=== PATIENT | female | born 1985 | race Caucasian/White ===

== ENCOUNTER → 2019-08-09 12:50 | Outpatient (POV) | payer BC, SELFPAY | DX: Z00.00 Encounter for general adult medical examination without abnormal findings (principal) ==

== ENCOUNTER → 2020-11-20 17:18 | Outpatient (CLI) | payer BC, SELFPAY ==
[2020-11-20 17:43] LABS: Basophils # 0.1 K/mm3 (0-0.2); Eosinophils # 0.3 K/mm3 (0.0-0.4); Eosinophils % 2.2 % (0.1-12.0); Hematocrit 40.3 % (37.0-47.0); Hemoglobin 13.4 g/dL (12.2-16.2); Lymphocytes # 4.2 K/mm3 (0.7-4.5); Lymphocytes % 36.2 % (10-50); Mean Corpuscular HGB Conc 33.4 g/dL (31.8-35.4); Mean Corpuscular Hemoglobin 34.5 pg (27.0-31.2); Mean Corpuscular Volume 103.5 fl (81-99); Mean Platelet Volume 7.4 fl (7.4-10.4); Monocytes # 0.8 K/mm3 (0.1-1.0); Monocytes % 6.6 % (1.7-9.3); Neutrophils # 6.2 K/mm3 (1.8-7.8); Neutrophils % 54.1 % (37.0-80.0); Platelet Count 331 K/mm3 (142-424); Red Cell Distribution Width 13.1 % (11.5-17.5); White Blood Count 11.5 K/mm3 (4.8-10.8)
[2020-11-20 17:59] LABS: Anion Gap 11.8 mEq/L (5-15); Blood Urea Nitrogen 17 mg/dl (7-17); Calcium 10.2 mg/dl (8.4-10.2); Carbon Dioxide 22 mmol/L (22.0-30.0); Chloride 100 mmol/L (98-107); Estimated Glomerular Filt Rate 94 ml/min (>60); GFR (African American) 114 ML/MIN (>60); Glucose 84 mg/dl (74-100); Potassium 3.8 mmoL/L (3.5-5.1); Sodium 130 mmol/L (136-145)
[2020-11-20 18:04] LABS: HCG Qualitative, Serum Negative (Negative)
[2020-11-20 18:15] LABS: Coronavirus 19 IgG Antibody Negative (Negative); Coronavirus 19 IgM Antibody Negative (Negative)
== END ==
PROVIDERS: Visit Provider Nurse Practitioner Obstetrics & Gynecology
DX: Z01.812 Encounter for preprocedural laboratory examination (principal); Z20.822 Contact with and (suspected) exposure to COVID-19; A63.0 Anogenital (venereal) warts
CPT/HCPCS: 36415; 80048; 84703; 85025; 86328

== ENCOUNTER 2020-11-22 06:02 | Day surgery (SDC) | payer BC, SELFPAY ==
[2020-11-19 11:47] VITALS: BMI 26.5
[2020-11-22] VITALS (10 sets, daily range): BP systolic 101–128; BP diastolic 59–81; PULSE 79–92; RESP 14–18; TEMP 36.1–43; O2SAT 94–99
--- NOTE | 2020-11-22 08:34 | HMH.OPNOTE ---
Date of procedure: 11/22/20 Pre-op Diagnosis:: Perineal and perianal condylomata Post-op Diagnosis:: perineal and perianal condyloma. Procedure performed:: Laser and shaving of perianal and perineal condylomata Surgeon:: Catracho Fregoso MD [employer]:: Other (Matthew Rosenberg) Anesthesia: LMA Estimated blood loss (mL): 10 Clinical Note:: She is a 35-year-old lady who complains of perianal and perineal condylomata. After having discussed the risk and benefits we elected to remove these with both laser and shaving. Operative findings:: She had multiple condylomata in the perineal and perianal area. There were at least 30 separate lesions. Operative note:: She was taken the operating room where LMA anesthesia was found be adequate. She was prepped draped normal sterile fashion in the lithotomy position. There were a number of small lesions that were pedunculated and using a small pair of Metzenbaum scissors and toothed pickups I was able to shave these off with the scissors. I applied a small amount of silver nitrate to stop any bleeding from the skin. Then using the CO2 laser on 5 superpulse I lasered the rest of the lesions on both sides of her perineum and perianal area. I applied some acetic acid and then further used the laser to smooth the skin on the perineal area. We then applied lidocaine 5% ointment to the entire area. A pad was applied. She tolerated seizure well and was taken to the recovery room in excellent condition. All sponge and instrument counts were correct. There were no needles. Estimated blood loss was less than 10 cc. Condition: stable Disposition: PACU Specimens:: Perineal warts Complications:: None
--- NOTE | 2020-11-22 11:54 | P.PN_ITS ---
[facility] Anesthesia Checklist - Patient Identification Patient Identification: Arm Band - Structural Data Admitted From: Home Planned Operative Procedure/s: Laser removal of condyloma Consent for Planned Operative Procedure(s) Verified: Yes Verified Documents: Surgical Consent, History and Physical - Additional verifications Anesthesia Reactions: No Hx Blood Transfusions: No Blood Transfusion Reaction: No - Airway Assessment C-Spine Mobility Assessed: Yes TMJ Mobility Assessed: Yes Dentition: Good Dentition - Neurological Assessment Level of Consciousness: Awake, Alert - Anesthesia Plan Anesthesia Risk discussed: Yes Anesthesia Plan: Verified ASA Class: II Anesthesia Type: General [facility] History Medical History: Reports:: Hypertension Denies:: Cancer, Diabetes Mellitus Type 1, Diabetes Mellitus Type 2, Internal Pacemaker, MRSA, Seizures *Have you ever received a pneumonia vaccine?: No *Have you received a flu vaccine this season?: No Other Medical History: Denies: Blood Transfusion Reaction Anesthesia experience/problems:: None Other Surgeries: No: Pacemaker Amputation: No Fractures: No - *Social History Last grade of school completed: High school graduate Smoking Status: Current every day smoker Tobacco Type: cigarettes # Packs/Day (cigarettes): 1 Alcohol Intake: current Alcohol Intake Frequency:: a few times a month Substance Use Type: denies use *Occupational Status:: employed Housing: house Household Members: spouse *Travel in the last 8 weeks: None Family Hx:: Diabetes, Heart Attack, Hypertension, Hyperlipidemia, Asthma [employer] history: no No [employer] history, no Non-contributory, no Spontaneous , no Therapeutic , no Cervical Cancer, no Abnormal Uterine Bleeding, no Ovarian Cancer, no dysfunctional uterine bleed, no Endometriosis, no Ectopic , no Polycystic Ovary Syndrome, no Uterine Fibroids, no Tubal Ligation, no , no Failure to Progress, no Additional [employer] History
--- NOTE | 2020-11-22 11:56 | HMH.ANESI ---
[facility] Anesthesia Record Part I Intake, IV Amount: 900 Estimated blood loss (mL): 20 Urine output (mL): 0 Blood Pressure: 114/77 SaO2: 97 Pulse Rate: 92 Respiratory Rate: 14 Temperature: 98.1 F Patient is:: Awake, Drowsy Stable to PACU at:: 08:43
--- NOTE | 2020-11-25 11:15 | HMH.ANESII ---
[facility] Anesthesia Record Part II Discharge Time: 09:03 Destination: Surgical Day Care (OP Surgery) PACU nurse assessment reviewed?: Yes Patient Condition:: Good Anesthesia Complications:: None Swallowing reflex intact?: Yes Cyanosis?: No Blood Pressure: 101/64 Pulse Rate: 87 Temperature: 98.1 F Mental Status: Alert & Oriented Pain level:: 0 Nausea and/or vomitting:: None Intake, IV Amount: 0
[2020-11-25 11:17] VITALS: BP 101/64; PULSE 87; TEMP 36.7
== END 2020-11-22 09:39 | disposition home or self-care (01) ==
LOC: OR 06:04
PROVIDERS: PCP Nurse Practitioner; Visit Provider Nurse Practitioner Obstetrics & Gynecology
PROC: (CPT 56515; principal; 2020-11-22 07:30)
DX: A63.0 Anogenital (venereal) warts (principal); I10 Essential (primary) hypertension; Z72.0 Tobacco use; Z83.3 Family history of diabetes mellitus; Z82.3 Family history of stroke; Z82.49 Family history of ischemic heart disease and other diseases of the circulatory system; Z83.438 Family history of other disorder of lipoprotein metabolism and other lipidemia; Z82.5 Family history of asthma and other chronic lower respiratory diseases
CPT/HCPCS: 56515; 96374; J2405

== ENCOUNTER → 2021-02-17 12:13 | Outpatient (CLI) | payer BC, SELFPAY | LOC: COVID.OUT 12:18 → LAB 12:46 | PROVIDERS: Referring Provider Nurse Practitioner; Visit Provider Nurse Practitioner | DX: Z20.822 Contact with and (suspected) exposure to COVID-19 (principal); U07.1 COVID-19 | CPT/HCPCS: U0003 ==

== ENCOUNTER → 2021-02-20 08:56 | Outpatient (CLI) | payer BC, SELFPAY ==
[2021-02-20 09:54] LABS: Coronavirus 19 IgG Antibody Positive (Negative); Coronavirus 19 IgM Antibody Negative (Negative)
== END ==
PROVIDERS: Visit Provider Family Medicine
DX: U07.1 COVID-19 (principal)
CPT/HCPCS: 36415; 86328

== ENCOUNTER 2024-10-16 10:45 | Outpatient (CLI) | payer BC, SELFPAY ==
[2024-10-16 18:01] LABS: Basophils # 0.1 K/mm3 (0-0.2); Basophils % 1.3 % (0.1-2.0); Eosinophils % 0.6 % (0.1-12.0); Hematocrit 41.2 % (37.0-47.0); Hemoglobin 14.8 g/dL (12.2-16.2); Lymphocytes # 2.8 K/mm3 (0.7-4.5); Lymphocytes % 40.3 % (10-50); Mean Corpuscular HGB Conc 35.9 g/dL (31.8-35.4); Mean Corpuscular Hemoglobin 34.6 pg (27.0-31.2); Mean Corpuscular Volume 96.3 fl (81-99); Mean Platelet Volume 8.8 fl (7.4-10.4); Monocytes # 0.9 K/mm3 (0.1-1.0); Monocytes % 12.6 % (1.7-9.3); Neutrophils # 3.1 K/mm3 (1.8-7.8); Neutrophils % 45.2 % (37.0-80.0); Platelet Count 286 K/mm3 (142-424); Red Blood Count 4.28 M/mm3 (4.20-5.40); Red Cell Distribution Width 12.6 % (11.5-17.5); White Blood Count 6.9 K/mm3 (4.8-10.8)
[2024-10-16 19:23] LABS: Microalbumin/Creatinine Ratio 52.3
[2024-10-16 19:30] LABS: Creatinine,Urine Random 95 mg/dL (Not Estab.)
[2024-10-16 20:19] LABS: Hemoglobin A1C 4.8 % (4.0-6.0)
[2024-10-16 20:57] LABS: Alanine Aminotransferase 29 U/L (12-78); Albumin Level 4.4 g/dl (3.5-5.0); Albumin/Globulin Ratio 1.6 (1.1-1.8); Alkaline Phosphatase 84 U/L (38-126); Anion Gap 16.5 mEq/L (5-15); Aspartate Amino Transferase 53 U/L (14-36); Bilirubin,Total 0.4 mg/dl (0.2-1.3); Blood Urea Nitrogen 11 mg/dl (7-17); Calcium 9.9 mg/dl (8.4-10.2); Carbon Dioxide 21 mmol/L (22.0-30.0); Chloride 101 mmol/L (98-107); Cholesterol 248 mg/dl (140-200); Estimated Glomerular Filt Rate 110 ml/min (>60); GFR (African American) 133 ML/MIN (>60); Globulin 2.8 g/dL (1.3-3.2); Glucose 82 mg/dl (74-100); HDL Cholesterol 83 mg/dl (40-60); Potassium 3.5 mmoL/L (3.5-5.1); Sodium 135 mmol/L (136-145); Total Protein,Serum 7.2 g/dl (6.3-8.2); Triglycerides 57 mg/dl (30-150); VLDL Cholesterol 11 mg/dL (0-40)
[2024-10-16 21:08] LABS: Direct LDL Cholesterol 142.26 mg/dL (100-129)
[2024-10-16 22:02] LABS: Vitamin B12 442 pg/mL (239-931)
[2024-10-16 22:19] LABS: Thyroid Stimulating Hormone 3.67 uIU/mL (0.465-4.68)
== END 2024-10-16 23:59 | disposition home or self-care (01) ==
LOC: LAB.DROPOF 10-18 10:46
PROVIDERS: PCP Nurse Practitioner; Visit Provider Nurse Practitioner
DX: I10 Essential (primary) hypertension (principal); K21.9 Gastro-esophageal reflux disease without esophagitis; F41.8 Other specified anxiety disorders; Z30.42 Encounter for surveillance of injectable contraceptive
CPT/HCPCS: 80053; 80061; 82043; 82570; 82607; 83036; 84443; 85025

== ENCOUNTER 2024-12-08 12:56 | Outpatient (CLI) | payer BC, SELFPAY ==
--- NOTE | 2024-12-08 13:00 | MM_ITS ---
PROCEDURE INFORMATION: Exam: MG Bilateral Screening 3D Mammography Exam date and time: 12/08/2024 1:05 PM Age: 39 years old Clinical indication: Screening exam TECHNIQUE: Imaging protocol: Bilateral Screening tomosynthesis and 2D mammography including computer-aided detection (CAD) when performed. COMPARISON: No relevant prior studies available. FINDINGS: MAMMOGRAPHY: Breast composition: There are scattered areas of fibroglandular density. Mass: No suspicious masses. Architectural distortion: None. Calcifications: No suspicious calcifications. Asymmetric density: None. Skin thickening: None. Axillary adenopathy: None. IMPRESSION: No mammographic evidence of malignancy. Annual screening is recommended unless otherwise clinically indicated. ASSESSMENT: BI-RADS Category 1: Negative.
== END 2024-12-08 23:59 | disposition home or self-care (01) ==
LOC: RAD 12:57
PROVIDERS: PCP Nurse Practitioner; Visit Provider Nurse Practitioner
DX: Z12.31 Encounter for screening mammogram for malignant neoplasm of breast (principal)
CPT/HCPCS: 77063; 77067

== ENCOUNTER 2025-01-10 14:30 | Outpatient (CLI) | payer BC, SELFPAY ==
[2025-01-10 18:51] LABS: Basophils # 0.1 K/mm3 (0-0.2); Basophils % 1.7 % (0.1-2.0); Eosinophils # 0.1 Kmm3 (0.0-0.4); Eosinophils % 2.2 % (0.1-12.0); Hematocrit 44.1 % (37.0-47.0); Hemoglobin 14.6 g/dL (12.2-16.2); Immature Granulocytes # 0.01 10^3uL; Immature Granulocytes % 0.2 %; Lymphocytes # 2.7 K/mm3 (0.7-4.5); Lymphocytes % 41.2 % (10-50); Mean Corpuscular HGB Conc 33.1 g/dL (31.8-35.4); Mean Corpuscular Volume 102.6 fl (81-99); Mean Platelet Volume 8.7 fl (7.4-10.4); Monocytes # 0.7 K/mm3 (0.1-1.0); Monocytes % 10.1 % (1.7-9.3); Neutrophils # 2.9 K/mm3 (1.8-7.8); Neutrophils % 44.6 % (37.0-80.0); Nucleated Red Blood Cells # 0 10^3/uL; Nucleated Red Blood Cells % 0 %; Platelet Count 313 K/mm3 (142-424); Red Cell Distribution Width 13.9 % (11.5-17.5); Red Cell Distribution Width-SD 52.8 fL; White Blood Count 6.4 K/mm3 (4.8-10.8)
[2025-01-10 19:19] LABS: Alanine Aminotransferase 38 U/L (12-78); Albumin/Globulin Ratio 1.9 (1.1-1.8); Alkaline Phosphatase 92 U/L (38-126); Aspartate Amino Transferase 66 U/L (14-36); Bilirubin,Total 0.4 mg/dl (0.2-1.3); Blood Urea Nitrogen 8 mg/dl (7-17); Calcium 10.2 mg/dl (8.4-10.2); Carbon Dioxide 26 mmol/L (22.0-30.0); Chloride 99 mmol/L (98-107); Estimated Glomerular Filt Rate 110 ml/min (>60); GFR (African American) 133 ML/MIN (>60); Globulin 2.6 g/dL (1.3-3.2); Glucose 85 mg/dl (74-100); Sodium 137 mmol/L (136-145); Total Protein,Serum 7.6 g/dl (6.3-8.2)
[2025-01-10 19:45] LABS: Thyroid Stimulating Hormone 1.42 uIU/mL (0.465-4.68)
[2025-01-10 19:47] LABS: Hemoglobin A1C 5.8 % (4.0-6.0)
[2025-01-10 20:39] LABS: HIV Combo NEGATIVE (Negative)
[2025-01-10 20:48] LABS: Hepatitis C Ab Qual. W/ RFX NEGATIVE (Negative)
[2025-01-12 10:29] LABS: Hepatitis B Surface Antigen Negative (Negative)
== END 2025-01-10 23:59 | disposition home or self-care (01) ==
LOC: LAB.DROPOF 01-11 12:30
PROVIDERS: PCP Nurse Practitioner; Visit Provider Nurse Practitioner
DX: R00.0 Tachycardia, unspecified (principal); Z11.59 Encounter for screening for other viral diseases
CPT/HCPCS: 80053; 83036; 84443; 85025; 86803; 87340; 87389

== ENCOUNTER 2025-07-05 16:00 | Outpatient (CLI) | payer BC, SELFPAY ==
[2025-07-05 21:15] LABS: Alanine Aminotransferase 36 U/L (12-78); Albumin Level 4.6 g/dl (3.5-5.0); Albumin/Globulin Ratio 2.0 (1.1-1.8); Alkaline Phosphatase 99 U/L (38-126); Anion Gap 11.8 mEq/L (5-15); Aspartate Amino Transferase 49 U/L (14-36); Bilirubin,Total 0.5 mg/dl (0.2-1.3); Blood Urea Nitrogen 13 mg/dl (7-17); Calcium 9.6 mg/dl (8.4-10.2); Carbon Dioxide 21 mmol/L (22.0-30.0); Chloride 103 mmol/L (98-107); Cholesterol 233 mg/dl (140-200); Creatinine,Serum 0.70 mg/dl (0.52-1.04); Estimated Glomerular Filt Rate 92 ml/min (>60); GFR (African American) 111 ML/MIN (>60); Globulin 2.3 g/dL (1.3-3.2); Glucose 83 mg/dl (74-100); HDL Cholesterol 106 mg/dl (40-60); Potassium 3.8 mmoL/L (3.5-5.1); Sodium 132 mmol/L (136-145); Total Protein,Serum 6.9 g/dl (6.3-8.2); Triglycerides 118 mg/dl (30-150)
[2025-07-05 21:18] LABS: Hemoglobin A1C 4.8 % (4.0-6.0)
[2025-07-05 22:05] LABS: Vitamin B12 483 pg/mL (239-931)
== END 2025-07-05 23:59 | disposition home or self-care (01) ==
LOC: LAB.DROPOF 07-06 10:58
PROVIDERS: PCP Nurse Practitioner; Visit Provider Nurse Practitioner
DX: K21.9 Gastro-esophageal reflux disease without esophagitis (principal); F41.8 Other specified anxiety disorders; I10 Essential (primary) hypertension; E78.5 Hyperlipidemia, unspecified; Z30.42 Encounter for surveillance of injectable contraceptive; Z86.39 Personal history of other endocrine, nutritional and metabolic disease
CPT/HCPCS: 80053; 80061; 82043; 82570; 82607; 83036